=== PATIENT | male | born 1940 | race African-American/Black ===

== ENCOUNTER 2023-10-19 08:03 | Inpatient (IN) | payer OTHER, MEDICARE ==
[~2023-10-19] VITALS: Ht 182.9 cm; Wt 78.2 kg
[2023-10-19] MEDS ORDERED: ACETAMINOPHEN 325MG TABLET PO STA (08:14)
[2023-10-19] MEDS ORDERED: SODIUM CHLORIDE 0.9% 1,000 ML IV ONE ×2 (08:15→11:00)
[2023-10-19 09:00] LABS: HEMATOCRIT. 30.6 % (42.0-52.0); HEMOGLOBIN. 9.5 g/dL (14.0-18.0); MEAN CORPUSCULAR HGB CONC 31.1 g/dL (31.0-37.0); MEAN CORPUSCULAR VOLUME 89.8 fL (80.0-94.0); MEAN PLATELET VOLUME 7.4 fl (7.4-10.4); PLATELET 235 x1000/uL (130-400); RED BLOOD CELL COUNT 3.41 mill/uL (4.7-6.1); RED CELL DISTRIBUTION WIDTH 14.8 % (11.6-14.6); WHITE BLOOD COUNT 13.4 x1000/uL (4.5-11.0)
[2023-10-19 09:03] LABS: INR 1.2; PROTHROMBIN TIME 12.8 sec (9.6-11.0)
[2023-10-19 09:05] LABS: DIFFERENTIAL COMMENT 1
[2023-10-19 09:14] LABS: ALANINE AMINOTRANSFERASE 10 IU/L (10-49); ALBUMIN 3.3 g/dL (3.2-4.8); ASPARTATE AMINOTRANSFERASE 32 IU/L (<34); BILIRUBIN TOTAL 0.5 mg/dL (0.1-1.0); CALCIUM 8.7 mg/dL (8.7-10.4); CARBON DIOXIDE 21 mEq/L (21-32); CHLORIDE 96 mEq/L (98-107); CREATININE 2.5 mg/dL (0.6-1.3); GLUCOSE 131 mg/dL (70-105); PROTEIN TOTAL 7.6 g/dL (6.0-8.3); SODIUM 130 mEq/L (136-145); UREA NITROGEN BLOOD 33 mg/dL (9-23)
[2023-10-19 09:26] LABS: TROPONIN I HIGH SENSITIVITY 1831 ng/L (3.0-53)
[2023-10-19 09:27] LABS: LACTIC ACID 8.2 mmol/L (0.4-2.0)
[2023-10-19] MEDS ORDERED: VANCOMYCIN 1G PREMIX 200 ML IV STA (10:39)
[2023-10-19] MEDS ORDERED: CEFEPIME 1,000 MG in DEXTROSE 5% WATER 50 ML IV STA (10:39)
[2023-10-19] MEDS ORDERED: ASPIRIN 325MG TABLET PO ONE (10:45)
[2023-10-19 11:25] LABS: TROPONIN I HIGH SENSITIVITY 2841 ng/L (3.0-53)
[2023-10-19] MEDS ORDERED: CLONIDINE 0.1MG TABLET PO PRN (14:00)
[2023-10-19] MEDS ORDERED: ACETAMINOPHEN 325MG TABLET PO PRN ×2 (14:00)
[2023-10-19] MEDS ORDERED: DOCUSATE SODIUM 100MG CAPSULE PO PRN (14:00)
[2023-10-19] MEDS ORDERED: ONDANSETRON HCL 4MG/2ML INJ IV PRN (14:00)
[2023-10-19] MEDS ORDERED: IPRATROPIUM/ALBUTEROL 0.5-3(2.5)MG/3ML NEB HHN PRN (14:00)
[2023-10-19] MEDS ORDERED: GUAIFENESIN 200MG/10ML SUGAR FREE UDC PO PRN (14:00)
[2023-10-19] MEDS ORDERED: MAGNESIUM/ALUMINUM HYDROXIDE/SIMETHICONE 30ML UDC PO PRN (14:00)
[2023-10-19] MEDS: LACTATED RINGERS 1,000 ML IV SCH (14:30)
[2023-10-19 14:44] LABS: HYPOCHROMASIA 1+; PLATELET ESTIMATE NORMAL
[2023-10-19] MEDS ORDERED: NOREPINEPHRINE 8MG/250ML PMX 250 ML IV ONE (14:45)
[2023-10-19] MEDS ORDERED: PIPERACILLIN/TAZ 3.375G PREMIX 50 ML IV NR (15:30)
[2023-10-19 17:39] LABS: CLARITY URINE CLOUDY (CLEAR); COLOR URINE YELLOW (YELLOW)
[2023-10-19 17:40] LABS: GLUCOSE URINE NEGATIVE (NEGATIVE); KETONES URINE NEGATIVE (NEGATIVE); LEUKOCYTE ESTERASE URINE 2+ (NEGATIVE); NITRITE URINE NEGATIVE (NEGATIVE); OCCULT BLOOD URINE 3+ (NEGATIVE); PROTEIN URINE 1+ (NEGATIVE); UROBILINOGEN URINE 0.2 E.U./dL (0.2-1.0)
[2023-10-19 17:57] LABS: BACTERIA URINE 4+; SQUAMOUS EPITHELIAL CELL URINE FEW /lpf (RARE/1+)
[2023-10-19 17:58] LABS: RBC URINE 15-25 /hpf (0-2); WBC URINE 25-50 /hpf (0-2)
[2023-10-19 18:20] LABS: *AMPHETAMINES SCREEN URINE NEGATIVE (NEGATIVE); *BARBITURATES SCREEN URINE NEGATIVE (NEGATIVE); *BENZODIAZEPINES SCREEN URINE NEGATIVE (NEGATIVE); *COCAINE SCREEN URINE NEGATIVE (NEGATIVE); CANNABINOID URINE SCREEN NEGATIVE (NEGATIVE); ECSTASY MDMA SCREEN URINE NEGATIVE (NEGATIVE); METHADONE URINE SCREEN Neg (NEGATIVE); OPIATES URINE SCREEN NEGATIVE (NEGATIVE); PHENCYCLIDINE URINE SCREEN NEGATIVE (NEGATIVE); SODIUM URINE RANDOM 39 mEq/L
[2023-10-19 18:24] LABS: OSMOLALITY URINE 268 mOsm/kg (500-850)
[2023-10-19 19:18] LABS: ALANINE AMINOTRANSFERASE 13 IU/L (10-49); ASPARTATE AMINOTRANSFERASE 61 IU/L (<34); BILIRUBIN TOTAL 0.5 mg/dL (0.1-1.0); CALCIUM 7.8 mg/dL (8.7-10.4); CARBON DIOXIDE 21 mEq/L (21-32); CHLORIDE 100 mEq/L (98-107); CREATINE KINASE 1525 IU/L (46-171); CREATINE KINASE MB FRACTION 16.3 ng/mL (0.5-3.6); CREATININE 2.6 mg/dL (0.6-1.3); GLUCOSE 103 mg/dL (70-105); POTASSIUM 3.6 mEq/L (3.5-5.1); PROTEIN TOTAL 6.8 g/dL (6.0-8.3); SODIUM 132 mEq/L (136-145); UREA NITROGEN BLOOD 37 mg/dL (9-23)
[2023-10-19 19:46] LABS: TROPONIN I HIGH SENSITIVITY 3756 ng/L (3.0-53)
[2023-10-19] MEDS ORDERED: ENOXAPARIN 30MG/0.3ML SYR SUBCUT SCH (20:00)
[2023-10-19] MEDS ORDERED: PIPERACILLIN/TAZOBACTAM 3.375G in DEXT 5% WATER 50ML IV SCH (23:00)
[2023-10-20] VITALS (8 sets, daily range): BP systolic 98–125; BP diastolic 53–79; PULSE 89–97; RESP 16–32; TEMP 97–98.2
[2023-10-20 00:43] LABS: TROPONIN I HIGH SENSITIVITY 3724 ng/L (3.0-53)
[2023-10-20 05:10] LABS: HEMATOCRIT. 30.7 % (42.0-52.0); HEMOGLOBIN. 9.8 g/dL (14.0-18.0); MEAN CORPUSCULAR HEMOGLOBIN 28.6 pg (28.0-32.0); MEAN CORPUSCULAR HGB CONC 32.1 g/dL (31.0-37.0); MEAN CORPUSCULAR VOLUME 89.1 fL (80.0-94.0); MEAN PLATELET VOLUME 7.6 fl (7.4-10.4); PLATELET 147 x1000/uL (130-400); RED BLOOD CELL COUNT 3.44 mill/uL (4.7-6.1); RED CELL DISTRIBUTION WIDTH 15.4 % (11.6-14.6); WHITE BLOOD COUNT 27.5 x1000/uL (4.5-11.0)
[2023-10-20 05:19] LABS: DIFFERENTIAL COMMENT 1
[2023-10-20] MEDS: ATORVASTATIN CALCIUM 20MG TABLET PO SCH ×2 (05:30→21:03)
[2023-10-20 05:32] LABS: ALANINE AMINOTRANSFERASE 18 IU/L (10-49); ALBUMIN 3.2 g/dL (3.2-4.8); ASPARTATE AMINOTRANSFERASE 98 IU/L (<34); BILIRUBIN TOTAL 0.4 mg/dL (0.1-1.0); CALCIUM 8.1 mg/dL (8.7-10.4); CARBON DIOXIDE 22 mEq/L (21-32); CHLORIDE 100 mEq/L (98-107); CHOLESTEROL 87 mg/dL (<200); CREATININE 3.1 mg/dL (0.6-1.3); GLUCOSE 103 mg/dL (70-105); HDL CHOLESTEROL < 20 mg/dL (>55); LDL CHOLESTEROL 27 mg/dL (5-100); POTASSIUM 3.8 mEq/L (3.5-5.1); PROTEIN TOTAL 7.2 g/dL (6.0-8.3); SODIUM 131 mEq/L (136-145); T4 FREE 1.21 ng/dL (0.89-1.76); THYROID STIMULATING HORMONE 3.37 uIU/mL (0.55-4.78); TRIGLYCERIDE 105 mg/dL (0-150); UREA NITROGEN BLOOD 41 mg/dL (9-23)
[2023-10-20] MEDS: LACTATED RINGERS 1,000 ML IV SCH ×2 (05:37→17:10)
[2023-10-20 05:46] LABS: PLATELET ESTIMATE NORMAL
[2023-10-20 06:43] LABS: CREATINE KINASE MB FRACTION 26.2 ng/mL (0.5-3.6)
[2023-10-20 07:25] LABS: CREATINE KINASE MB FRACTION 24.7 ng/mL (0.5-3.6)
[2023-10-20] MEDS ORDERED: VANCOMYCIN 750MG PREMIX 150 ML IV SCH (08:00)
[2023-10-20] MEDS: ENOXAPARIN 40MG/0.4ML SYR SUBCUT NR ×2 (08:53→14:25)
[2023-10-20] MEDS ORDERED: FAMOTIDINE 20MG/2ML VIAL IV SCH (09:00)
[2023-10-20] MEDS ORDERED: PIPERACILLIN/TAZ 3.375G PREMIX 50 ML IV SCH (09:00)
[2023-10-20] MEDS: ASPIRIN 81MG EC TABLET PO SCH (09:18)
[2023-10-20] MEDS ORDERED: PHENYLEPHRINE 100 MG in DEXT 5% WATER 240 ML IV PRN (09:45)
[2023-10-20] MEDS ORDERED: CLOPIDOGREL 75MG TABLET PO SCH (09:45)
[2023-10-20 11:25] LABS: TROPONIN I HIGH SENSITIVITY 4897 ng/L (3.0-53)
[2023-10-20 12:38] LABS: CREATINE KINASE MB FRACTION 32.6 ng/mL (0.5-3.6)
[2023-10-20] MEDS: CLOPIDOGREL 75MG TABLET PO SCH (14:25)
[2023-10-20] MEDS ORDERED: LOPERAMIDE HCL 2MG CAPSULE PO NR (14:45)
[2023-10-20] MEDS: PIPERACILLIN/TAZOBACTAM 3.375 G in DEXTROSE 5% WATER 50 ML IV SCH ×2 (15:46→22:49)
[2023-10-20] MEDS ORDERED: LACTATED RINGERS 1,000 ML IV SCH (20:45)
[2023-10-20] MEDS ORDERED: PIPERACILLIN/TAZOBACTAM 3.375 G in DEXTROSE 5% WATER 50 ML IV SCH (21:00)
[2023-10-20 22:02] LABS: CREATINE KINASE MB FRACTION 25.4 ng/mL (0.5-3.6)
[2023-10-21] VITALS (9 sets, daily range): BP systolic 104–123; BP diastolic 49–81; PULSE 79–101; RESP 11–26; TEMP 97.1–98.2
[2023-10-21 02:04] LABS: HEMATOCRIT. 27.2 % (42.0-52.0); MEAN CORPUSCULAR HEMOGLOBIN 28.2 pg (28.0-32.0); MEAN CORPUSCULAR HGB CONC 33.3 g/dL (31.0-37.0); MEAN CORPUSCULAR VOLUME 84.9 fL (80.0-94.0); MEAN PLATELET VOLUME 7.9 fl (7.4-10.4); PLATELET 133 x1000/uL (130-400); WHITE BLOOD COUNT 21.7 x1000/uL (4.5-11.0)
[2023-10-21 02:09] LABS: DIFFERENTIAL COMMENT 1
[2023-10-21 02:16] LABS: CALCIUM 8.1 mg/dL (8.7-10.4); CARBON DIOXIDE 21 mEq/L (21-32); CHLORIDE 101 mEq/L (98-107); GLUCOSE 123 mg/dL (70-105); PHOSPHORUS 2.5 mg/dL (2.5-4.9); SODIUM 132 mEq/L (136-145); UREA NITROGEN BLOOD 33 mg/dL (9-23)
[2023-10-21 02:17] LABS: CREATINE KINASE MB FRACTION 14.8 ng/mL (0.5-3.6)
[2023-10-21 02:19] LABS: CREATININE 1.8 mg/dL (0.6-1.3)
[2023-10-21 05:15] LABS: PLATELET ESTIMATE NORMAL
[2023-10-21] MEDS ORDERED: POTASSIUM CHLORIDE INJ 40 MEQ in DEXT 5% WATER 250 ML IV ONE (06:00)
[2023-10-21] MEDS ORDERED: POTASSIUM CHLORIDE 20MEQ TABLET SR PO NR (06:00)
[2023-10-21] MEDS: KCL 20MEQ/100ML X 2 FOR TOTAL KCL 40MEQ/200ML IV SCH ×2 (06:08→08:26)
[2023-10-21] MEDS ORDERED: KCL 20MEQ/100ML PREMIX 100 ML IV SCH (07:15)
[2023-10-21] MEDS ORDERED: LACTATED RINGERS 1,000 ML IV SCH (07:45)
[2023-10-21] MEDS: PIPERACILLIN/TAZOBACTAM 3.375 G in DEXTROSE 5% WATER 50 ML IV SCH ×3 (08:26→21:13)
[2023-10-21] MEDS: CLOPIDOGREL 75MG TABLET PO SCH (08:28)
[2023-10-21] MEDS: ASPIRIN 81MG EC TABLET PO SCH (08:28)
[2023-10-21] MEDS ORDERED: ENOXAPARIN 80MG/0.8ML SYR SUBCUT SCH (09:00)
[2023-10-21 11:38] LABS: CREATINE KINASE MB FRACTION 16.3 ng/mL (0.5-3.6)
[2023-10-21 16:42] LABS: CREATINE KINASE MB FRACTION 8.2 ng/mL (0.5-3.6)
[2023-10-21] MEDS: ATORVASTATIN CALCIUM 20MG TABLET PO SCH (19:58)
[2023-10-21 21:12] LABS: CALCIUM 8.2 mg/dL (8.7-10.4); CARBON DIOXIDE 20 mEq/L (21-32); CHLORIDE 104 mEq/L (98-107); CREATININE 1.3 mg/dL (0.6-1.3); GLUCOSE 131 mg/dL (70-105); POTASSIUM 3.5 mEq/L (3.5-5.1); SODIUM 135 mEq/L (136-145); UREA NITROGEN BLOOD 27 mg/dL (9-23)
[2023-10-22] VITALS: BP 119/52; PULSE 95; RESP 18; TEMP 97.3
[2023-10-22 00:11] VITALS: BP 129/63; PULSE 93; TEMP 98; O2SAT 92
[2023-10-22] MEDS ORDERED: ENOXAPARIN 80MG/0.8ML SYR SUBCUT SCH (09:00)
== END 2023-10-22 01:15 | disposition short-term general hospital (02) | DRG 871 ==
LOC: ER 08:03 → EDBEDREQTM 13:14 → EDBEDREQ 13:14 → EDBEDREQSVC 16:30 → EDBEDREQTM 16:31 → EDBEDREQSVC 16:31 → MICUSO 19:07 → 5EST 10-20 09:28 → 5WST 10-21 10:55
PROVIDERS: ADMIT Hospitalist; ATTEND Hospitalist
DX: A41.9 Sepsis, unspecified organism (principal); G92.8 Other toxic encephalopathy; I21.A1 Myocardial infarction type 2; R65.21 Severe sepsis with septic shock; E87.1 Hypo-osmolality and hyponatremia; N17.9 Acute kidney failure, unspecified; N39.0 Urinary tract infection, site not specified; M62.82 Rhabdomyolysis; N12 Tubulo-interstitial nephritis, not specified as acute or chronic; E87.20 Acidosis, unspecified; Z20.822 Contact with and (suspected) exposure to COVID-19; I12.9 Hypertensive chronic kidney disease with stage 1 through stage 4 chronic kidney disease, or unspecified chronic kidney disease; N18.9 Chronic kidney disease, unspecified; E86.0 Dehydration; K52.9 Noninfective gastroenteritis and colitis, unspecified; D64.9 Anemia, unspecified; E87.6 Hypokalemia; N32.0 Bladder-neck obstruction; Z79.02 Long term (current) use of antithrombotics/antiplatelets; Z79.82 Long term (current) use of aspirin; Z79.899 Other long term (current) drug therapy
CPT/HCPCS: 36415; 71045; 74176; 80048; 80053; 80061; 80305; 81003; 82550; 82553; 82962; 83605; 83735; 83880; 83930; 83935; 84100; 84145; 84153; 84300; 84439; 84443; 84484; 85025; 86850; 86900; 87077; 87186; 87426; 87804; 93005; 93306; 93970; 99291; J0692; J1650; J2543; J3370; J3480; J3490; J7030; J7060; J7120; G0103

== ENCOUNTER 2023-12-31 15:11 | Emergency (ER) | payer MEDICARE, OTHER ==
[~2023-12-31] VITALS: Ht 182.9 cm; Wt 78.0 kg
[2023-12-31 15:13] VITALS: O2SAT 97
[2023-12-31] MEDS ORDERED: NITROGLYCERIN 0.4MG TABLET SL SL PRN (15:15)
[2023-12-31] MEDS: ASPIRIN 81MG TABLET PO ONE (16:03)
[2023-12-31 16:08] LABS: BASOPHILS % 0.3 % (0.0-2.0); EOSINOPHILS % 0.4 % (0.0-5.0); HEMATOCRIT. 23.7 % (42.0-52.0); HEMOGLOBIN. 7.9 g/dL (14.0-18.0); LYMPHOCYTES % 8.3 % (20.0-50.0); MEAN CORPUSCULAR HEMOGLOBIN 29.4 pg (28.0-32.0); MEAN CORPUSCULAR HGB CONC 33.2 g/dL (31.0-37.0); MEAN CORPUSCULAR VOLUME 88.6 fL (80.0-94.0); MEAN PLATELET VOLUME 7.1 fl (7.4-10.4); MONOCYTES % 10.4 % (2.0-8.0); NEUTROPHILS % 80.6 % (40.0-76.0); PLATELET 275 x1000/uL (130-400); RED BLOOD CELL COUNT 2.67 mill/uL (4.7-6.1); RED CELL DISTRIBUTION WIDTH 17.1 % (11.6-14.6); WHITE BLOOD COUNT 8.6 x1000/uL (4.5-11.0)
[2023-12-31 16:21] LABS: ALANINE AMINOTRANSFERASE 12 IU/L (10-49); ALBUMIN 3.2 g/dL (3.2-4.8); ASPARTATE AMINOTRANSFERASE 25 IU/L (<34); BILIRUBIN TOTAL 0.4 mg/dL (0.1-1.0); CARBON DIOXIDE 21 mEq/L (21-32); CHLORIDE 105 mEq/L (98-107); CREATININE 0.9 mg/dL (0.6-1.3); GLUCOSE 117 mg/dL (70-105); POTASSIUM 3.4 mEq/L (3.5-5.1); PROTEIN TOTAL 7.2 g/dL (6.0-8.3); SODIUM 134 mEq/L (136-145); UREA NITROGEN BLOOD 14 mg/dL (9-23)
[2023-12-31 16:26] LABS: TROPONIN I HIGH SENSITIVITY 545 ng/L (3.0-53)
[2023-12-31] MEDS: FUROSEMIDE 40MG/4ML VIAL IVP ONE (17:26)
[2023-12-31] MEDS: ENOXAPARIN 80MG/0.8ML SYR SUBCUT ONE (17:27)
[2023-12-31] MEDS: CEFTRIAXONE 1GM/50ML 50 ML IV ONE (17:43)
[2023-12-31] MEDS: AZITHROMYCIN 500MG/250ML 250 ML IV ONE (18:00)
[2023-12-31] MEDS: ALBUTEROL (0.083%) 2.5MG/3ML NEB HHN ONE (18:07)
[2023-12-31 18:10] VITALS: PULSE 120; RESP 29
[2023-12-31 19:44] LABS: TROPONIN I HIGH SENSITIVITY 515 ng/L (3.0-53)
[2023-12-31 22:16] VITALS: BP 116/51; PULSE 115; RESP 31; TEMP 98
== END 2023-12-31 22:14 | disposition short-term general hospital (02) ==
LOC: ER 15:11
DX: R06.02 Shortness of breath (principal); I10 Essential (primary) hypertension; Z98.890 Other specified postprocedural states
CPT/HCPCS: 99291; 96365; 71045; 96366; 96375; 87426; 80053; 83880; 85025; 84484; 36415; 94640; 93005; 96372; J0456; J0696; J1650; J1940

== ENCOUNTER 2024-03-14 07:35 | Emergency (ER) | payer OTHER ==
[~2024-03-14] VITALS: Ht 165.1 cm; Wt 71.0 kg
[2024-03-14 07:43] VITALS: TEMP 97.3; O2SAT 97
[2024-03-14] MEDS: IBUPROFEN 400MG TABLET PO ONE (09:15)
[2024-03-14] MEDS: ACETAMINOPHEN 325MG TABLET PO ONE (09:15)
[2024-03-14 09:25] VITALS: BP 139/54; PULSE 88; RESP 17
[2024-03-14] MEDS ORDERED: CEPH500C2 MT (12:15)
[2024-03-14] MEDS ORDERED: SULF1TAB48 MT (12:15)
== END 2024-03-14 13:35 | disposition home or self-care (01) ==
LOC: ER 07:35
DX: L97.529 Non-pressure chronic ulcer of other part of left foot with unspecified severity (principal); L97.519 Non-pressure chronic ulcer of other part of right foot with unspecified severity; I25.2 Old myocardial infarction; I10 Essential (primary) hypertension; Z85.46 Personal history of malignant neoplasm of prostate; Z98.890 Other specified postprocedural states
CPT/HCPCS: 73620; 99283

== ENCOUNTER 2024-03-26 20:58 | Inpatient (IN) | payer OTHER, MEDICAID ==
[~2024-03-26] VITALS: Ht 182.9 cm; Wt 60.3 kg
[~2024-03-26 20:58] MED LIST: CEPH500C2 MT; SULF1TAB48 MT
[2024-03-26 23:23] LABS: CARBON DIOXIDE 30 mEq/L (21-32); CHLORIDE 100 mEq/L (98-107); POTASSIUM 4.1 mEq/L (3.5-5.1); SODIUM 135 mEq/L (136-145)
[2024-03-26 23:24] LABS: CALCIUM 8.3 mg/dL (8.7-10.4)
[2024-03-26 23:25] LABS: INR 1.2; PARTIAL THROMBOPLASTIN TIME 27.9 sec (23.4-31.0)
[2024-03-26 23:27] LABS: BASOPHILS % 0.6 % (0.0-2.0); HEMATOCRIT. 21.3 % (42.0-52.0); HEMOGLOBIN. 7.4 g/dL (14.0-18.0); LYMPHOCYTES % 7.5 % (20.0-50.0); MEAN CORPUSCULAR HEMOGLOBIN 33.1 pg (28.0-32.0); MEAN CORPUSCULAR HGB CONC 34.5 g/dL (31.0-37.0); MEAN CORPUSCULAR VOLUME 95.9 fL (80.0-94.0); MEAN PLATELET VOLUME 7.1 fl (7.4-10.4); MONOCYTES % 5.8 % (2.0-8.0); NEUTROPHILS % 86.1 % (40.0-76.0); PLATELET 299 x1000/uL (130-400); RED BLOOD CELL COUNT 2.22 mill/uL (4.7-6.1); RED CELL DISTRIBUTION WIDTH 16.1 % (11.6-14.6)
[2024-03-26 23:29] LABS: CREATININE 1.3 mg/dL (0.6-1.3); GLUCOSE 112 mg/dL (70-105); TROPONIN I HIGH SENSITIVITY 26 ng/L (3.0-53); UREA NITROGEN BLOOD 19 mg/dL (9-23)
[2024-03-26 23:30] LABS: ALANINE AMINOTRANSFERASE 17 IU/L (10-49); ASPARTATE AMINOTRANSFERASE 58 IU/L (<34)
[2024-03-26 23:31] LABS: ALBUMIN 2.9 g/dL (3.2-4.8); BILIRUBIN TOTAL 0.5 mg/dL (0.1-1.0); PROTEIN TOTAL 6.5 g/dL (6.0-8.3)
[2024-03-27] VITALS (43 sets, daily range): BP systolic 73–159; BP diastolic 34–143; PULSE 93–114; RESP 14–29; TEMP 97.9–98
[2024-03-27 00:20] LABS: CLARITY URINE TURBID (CLEAR); COLOR URINE YELLOW (YELLOW); GLUCOSE URINE NEGATIVE (NEGATIVE); KETONES URINE NEGATIVE (NEGATIVE); LEUKOCYTE ESTERASE URINE 3+ (NEGATIVE); NITRITE URINE NEGATIVE (NEGATIVE); OCCULT BLOOD URINE TRACE (NEGATIVE); PROTEIN URINE NEGATIVE (NEGATIVE); SPECIFIC GRAVITY URINE 1.008 (1.005-1.030)
[2024-03-27] MEDS: FUROSEMIDE 40MG/4ML VIAL IVP ONE (00:22)
[2024-03-27] MEDS: ASPIRIN 81MG TABLET PO ONE (00:23)
[2024-03-27] MEDS ORDERED: CEFTRIAXONE 1GM/50ML 50 ML IV ONE (00:45)
[2024-03-27] MEDS: HEPARIN 25,000 UNITS PREMIX 250 ML IV STA (00:50)
[2024-03-27] MEDS: CEFTRIAXONE 1GM/50ML 50 ML IV NR (00:53)
[2024-03-27] MEDS ORDERED: HEPARIN BOLUS PRN aPTT <36 IV ×2 (01:15)
[2024-03-27] MEDS ORDERED: HEPARIN 80 UNITS/KG BOLUS IV SCH (01:15)
[2024-03-27] MEDS ORDERED: HEPARIN BOLUS PRN aPTT 37-44 IV ×2 (01:15)
[2024-03-27] MEDS: HEPARIN 80 UNITS/KG BOLUS IV NR (01:23)
[2024-03-27] MEDS: HEPARIN 25,000 UNITS PREMIX 250 ML IV SCH (01:25)
[2024-03-27 06:12] LABS: SQUAMOUS EPITHELIAL CELL URINE FEW /lpf (RARE/1+); WBC URINE TNTC /hpf (0-2)
[2024-03-27 06:13] LABS: BACTERIA URINE 3+
[2024-03-27] MEDS ORDERED: ACETAMINOPHEN 650MG/20.3ML UDC PO PRN (06:30)
[2024-03-27] MEDS: METOPROLOL TARTRATE 50MG TABLET PO SCH (09:00)
[2024-03-27] MEDS: MIDODRINE HCL 5MG TABLET PO SCH (09:06)
[2024-03-27] MEDS: SODIUM CHLORIDE 0.9% 500 ML IV ONE (09:07)
[2024-03-27] MEDS: IOHEXOL-350 100 ML BOTTLE ONE (09:11)
[2024-03-27] MEDS ORDERED: PHENYLEPHRINE 50MG/250ML PMX 250 ML IV PRN (10:45)
[2024-03-27] MEDS ORDERED: ONDANSETRON HCL 4MG/2ML INJ IV PRN (10:45)
[2024-03-27] MEDS: PHENYLEPHRINE 50MG/250ML PMX 250 ML IV PRN (11:10)
[2024-03-27 11:22] LABS: IRON 20 ug/dL (65-175)
[2024-03-27 11:25] LABS: TOTAL IRON BINDING CAPACITY 171 ug/dl (250-425)
[2024-03-27] MEDS: PIPERACILLIN/TAZO 3.375G/50ML 50 ML IV SCH (14:58)
[2024-03-27] MEDS: SODIUM CHLORIDE 0.9% 1,000 ML IV SCH (18:21)
[2024-03-27] MEDS: PANTOPRAZOLE SODIUM 40 MG/VIAL IV SCH (20:29)
[2024-03-28] VITALS (78 sets, daily range): BP systolic 87–132; BP diastolic 39–80; PULSE 87–104; RESP 14–37; TEMP 98–99; O2SAT 97
[2024-03-28 05:33] LABS: POTASSIUM 3.2 mEq/L (3.5-5.1)
[2024-03-28 05:34] LABS: CALCIUM 7.3 mg/dL (8.7-10.4)
[2024-03-28 05:39] LABS: CREATININE 1.5 mg/dL (0.6-1.3)
[2024-03-28 06:46] LABS: MEAN CORPUSCULAR HEMOGLOBIN 31.5 pg (28.0-32.0); MEAN CORPUSCULAR HGB CONC 33.9 g/dL (31.0-37.0); MEAN CORPUSCULAR VOLUME 93.1 fL (80.0-94.0); MEAN PLATELET VOLUME 7.7 fl (7.4-10.4); PLATELET 226 x1000/uL (130-400); RED BLOOD CELL COUNT 2.25 mill/uL (4.7-6.1); RED CELL DISTRIBUTION WIDTH 17.1 % (11.6-14.6)
[2024-03-28 06:47] LABS: DIFFERENTIAL COMMENT 1
[2024-03-28 07:01] LABS: HEMOGLOBIN. 7.1 g/dL (14.0-18.0)
[2024-03-28 07:02] LABS: HEMATOCRIT. 20.9 % (42.0-52.0)
[2024-03-28] MEDS ORDERED: LIDOCAINE HCL 1% 10 MG/ML 10ML VIAL ONE ×2 (08:06→14:18)
[2024-03-28] MEDS: DEXTROSE 50% WATER 50ML SYRINGE IV ONE (08:07)
[2024-03-28] MEDS: DEXT 5%/0.45% NACL 1000ML 1,000 ML IV SCH (08:10)
[2024-03-28] MEDS: DEXTROSE 50% WATER 50ML SYRINGE IV NR (09:09)
[2024-03-28 09:16] LABS: TOXIC VACUOLATION 1+
[2024-03-28 09:17] LABS: PLATELET ESTIMATE NORMAL
[2024-03-28] MEDS: POTASSIUM CHLORIDE 20MEQ TABLET SR PO NR (09:17)
[2024-03-28 09:18] LABS: ANISOCYTOSIS 2+
[2024-03-28 14:48] LABS: ALBUMIN 2.5 g/dL (3.2-4.8)
[2024-03-28 15:14] LABS: PREALBUMIN < 5.0 mg/dl (10.0-40.0)
[2024-03-28] MEDS: VANCOMYCIN 250MG/5ML ORAL SYRINGE PO SCH (15:27)
[2024-03-29] MEDS ORDERED: MIDODRINE HCL 5MG TABLET PO SCH (09:00)
== END 2024-03-29 | disposition short-term general hospital (02) | DRG 871 ==
LOC: ER 20:58 → CVICU 03-27 01:56 → EDBEDREQ 03-27 09:46 → EDBEDREQSVC 03-27 10:43
PROVIDERS: ADMIT Internal Medicine; ATTEND Internal Medicine
DX: A41.9 Sepsis, unspecified organism (principal); L89.153 Pressure ulcer of sacral region, stage 3; L89.623 Pressure ulcer of left heel, stage 3; L89.613 Pressure ulcer of right heel, stage 3; R65.21 Severe sepsis with septic shock; E44.0 Moderate protein-calorie malnutrition; N17.9 Acute kidney failure, unspecified; K92.2 Gastrointestinal hemorrhage, unspecified; Z68.1 Body mass index [BMI] 19.9 or less, adult; A04.72 Enterocolitis due to Clostridium difficile, not specified as recurrent; D50.0 Iron deficiency anemia secondary to blood loss (chronic); B96.20 Unspecified Escherichia coli [E. coli] as the cause of diseases classified elsewhere; C61 Malignant neoplasm of prostate; I48.91 Unspecified atrial fibrillation; I11.0 Hypertensive heart disease with heart failure; I50.9 Heart failure, unspecified; B96.89 Other specified bacterial agents as the cause of diseases classified elsewhere; E16.2 Hypoglycemia, unspecified; Z85.46 Personal history of malignant neoplasm of prostate; Z87.440 Personal history of urinary (tract) infections
CPT/HCPCS: 36415; 36573; 71045; 71275; 80048; 80053; 81003; 82040; 82728; 82962; 83540; 83550; 83880; 84134; 84484; 85025; 86850; 86900; 86920; 87015; 87045; 87077; 87186; 87427; 87449; 87493; 93005; 93970; 99285; C1893; C9113; J0696; J1644; J1940; J2370; J2543; J3370; J3490; J7030; Q9967

== ENCOUNTER 2024-04-08 16:44 | Inpatient (IN) | payer OTHER, MEDICAID ==
[~2024-04-08] VITALS: Ht 182.9 cm; Wt 80.7 kg
[2024-04-08] MEDS: SODIUM CHLORIDE 0.9% 1000ML BAG (SEPSIS BOLUS) IV ONE (17:36)
[2024-04-08] MEDS: PIPERACILLIN/TAZO 3.375G/50ML 50 ML IV ONE (17:49)
[2024-04-08 18:06] LABS: BASOPHILS % 0.7 % (0.0-2.0); EOSINOPHILS % 0.3 % (0.0-5.0); HEMATOCRIT. 21.5 % (42.0-52.0); HEMOGLOBIN. 7.2 g/dL (14.0-18.0); LYMPHOCYTES % 19.5 % (20.0-50.0); MEAN CORPUSCULAR HGB CONC 33.3 g/dL (31.0-37.0); MEAN PLATELET VOLUME 7.2 fl (7.4-10.4); MONOCYTES % 6.9 % (2.0-8.0); NEUTROPHILS % 72.6 % (40.0-76.0); PLATELET 229 x1000/uL (130-400); RED BLOOD CELL COUNT 2.31 mill/uL (4.7-6.1); RED CELL DISTRIBUTION WIDTH 15.8 % (11.6-14.6); WHITE BLOOD COUNT 8.6 x1000/uL (4.5-11.0)
[2024-04-08] MEDS: VANCOMYCIN 1G PREMIX 200 ML IV ONE (18:06)
[2024-04-08 18:07] LABS: CHLORIDE 105 mEq/L (98-107); POTASSIUM 3.6 mEq/L (3.5-5.1); SODIUM 136 mEq/L (136-145)
[2024-04-08 18:08] LABS: CARBON DIOXIDE 22 mEq/L (21-32); INR 1.5; PROTHROMBIN TIME 16.2 sec (9.6-11.0)
[2024-04-08 18:09] LABS: CALCIUM 7.1 mg/dL (8.7-10.4)
[2024-04-08 18:13] LABS: CREATININE 0.8 mg/dL (0.6-1.3); GLUCOSE 79 mg/dL (70-105); UREA NITROGEN BLOOD 6 mg/dL (9-23)
[2024-04-08 18:14] LABS: TROPONIN I HIGH SENSITIVITY 28 ng/L (3.0-53)
[2024-04-08 18:28] LABS: CLARITY URINE CLOUDY (CLEAR); COLOR URINE YELLOW (YELLOW); GLUCOSE URINE NEGATIVE (NEGATIVE); KETONES URINE NEGATIVE (NEGATIVE); LEUKOCYTE ESTERASE URINE 3+ (NEGATIVE); NITRITE URINE NEGATIVE (NEGATIVE); OCCULT BLOOD URINE NEGATIVE (NEGATIVE); PH URINE 5.5 (4.5-8.0); PROTEIN URINE NEGATIVE (NEGATIVE); UROBILINOGEN URINE 0.2 E.U./dL (0.2-1.0)
[2024-04-08 18:42] LABS: SQUAMOUS EPITHELIAL CELL URINE 1+ /lpf (RARE/1+)
[2024-04-08 18:43] LABS: WBC URINE TNTC /hpf (0-2)
[2024-04-08 18:44] LABS: BACTERIA URINE 4+; RBC URINE 0-2 /hpf (0-2)
[2024-04-08 20:35] LABS: TROPONIN I HIGH SENSITIVITY 25 ng/L (3.0-53)
[2024-04-09] MEDS ORDERED: DIPHENHYDRAMINE 50MG/ML VIAL IV PRN (09:45)
[2024-04-09] MEDS ORDERED: IPRATROPIUM/ALBUTEROL 0.5-3(2.5)MG/3ML NEB HHN PRN (09:45)
[2024-04-09] MEDS ORDERED: CLONIDINE 0.1MG TABLET PO PRN (09:45)
[2024-04-09] MEDS ORDERED: ACETAMINOPHEN 325MG TABLET PO PRN (09:45)
[2024-04-09] MEDS ORDERED: ONDANSETRON HCL 4MG/2ML INJ IV PRN (09:45)
[2024-04-09] MEDS ORDERED: CEFTRIAXONE 1GM/50ML 50 ML IV SCH (09:45)
[2024-04-09] MEDS: CEFTRIAXONE 1GM/50ML 50 ML IV SCH (10:20)
[2024-04-09 18:55] VITALS: BP 129/57; PULSE 120; RESP 18; TEMP 98.2
[2024-04-09] MEDS: LACTOBACILLUS GG CAPSULE PO SCH (19:41)
[2024-04-10] VITALS (7 sets, daily range): BP systolic 104–132; BP diastolic 44–74; PULSE 63–108; RESP 17–18; TEMP 97.7–98.9; O2SAT 96
[2024-04-10 07:08] LABS: CARBON DIOXIDE 23 mEq/L (21-32); CHLORIDE 103 mEq/L (98-107); POTASSIUM 3.5 mEq/L (3.5-5.1); SODIUM 136 mEq/L (136-145)
[2024-04-10 07:09] LABS: CALCIUM 7.6 mg/dL (8.7-10.4)
[2024-04-10 07:10] LABS: BASOPHILS % 0.9 % (0.0-2.0); EOSINOPHILS % 0.8 % (0.0-5.0); HEMATOCRIT. 21.6 % (42.0-52.0); HEMOGLOBIN. 7.1 g/dL (14.0-18.0); LYMPHOCYTES % 12.7 % (20.0-50.0); MEAN CORPUSCULAR HEMOGLOBIN 30.6 pg (28.0-32.0); MEAN CORPUSCULAR HGB CONC 32.8 g/dL (31.0-37.0); MEAN CORPUSCULAR VOLUME 93.5 fL (80.0-94.0); MEAN PLATELET VOLUME 7.2 fl (7.4-10.4); MONOCYTES % 5.2 % (2.0-8.0); NEUTROPHILS % 80.4 % (40.0-76.0); PLATELET 216 x1000/uL (130-400); RED BLOOD CELL COUNT 2.31 mill/uL (4.7-6.1); RED CELL DISTRIBUTION WIDTH 15.9 % (11.6-14.6); WHITE BLOOD COUNT 9.2 x1000/uL (4.5-11.0)
[2024-04-10 07:14] LABS: CREATININE 0.8 mg/dL (0.6-1.3); GLUCOSE 72 mg/dL (70-105); UREA NITROGEN BLOOD 7 mg/dL (9-23)
[2024-04-10 18:04] LABS: ALBUMIN 1.9 g/dL (3.2-4.8)
[2024-04-10 18:08] LABS: PREALBUMIN < 5.0 mg/dl (10.0-40.0)
== END 2024-04-10 20:42 | disposition short-term general hospital (02) | DRG 871 ==
LOC: ER 16:44 → 5WST 23:55 → 7WST 04-09 16:15
PROVIDERS: ADMIT Internal Medicine; ATTEND Internal Medicine
DX: A41.9 Sepsis, unspecified organism (principal); L89.153 Pressure ulcer of sacral region, stage 3; N39.0 Urinary tract infection, site not specified; I82.412 Acute embolism and thrombosis of left femoral vein; I82.431 Acute embolism and thrombosis of right popliteal vein; I82.411 Acute embolism and thrombosis of right femoral vein; R64 Cachexia; D64.9 Anemia, unspecified; I10 Essential (primary) hypertension; I48.91 Unspecified atrial fibrillation; B96.89 Other specified bacterial agents as the cause of diseases classified elsewhere; Z20.822 Contact with and (suspected) exposure to COVID-19; C61 Malignant neoplasm of prostate; Z68.24 Body mass index [BMI] 24.0-24.9, adult
CPT/HCPCS: 36415; 71045; 80048; 81003; 82040; 83605; 84134; 84145; 84484; 85025; 87077; 87186; 87426; 93005; 93970; 99291; A6261; J0696; J2543; J3370; J7030

== ENCOUNTER 2024-04-14 15:02 | Inpatient (IN) | payer OTHER, MEDICAID ==
[2024-04-14] VITALS (25 sets, daily range): BP systolic 72–118; BP diastolic 50–74; PULSE 60–101; RESP 16–31; TEMP 95.3–95.4; O2SAT 92
[~2024-04-14] VITALS: Ht 172.7 cm; Wt 64.9 kg
[2024-04-14] MEDS: DEXTROSE 10% WATER 500 ML IV ONE (15:07)
[2024-04-14] MEDS: DEXTROSE 50% WATER 50ML SYRINGE IV ONE ×2 (15:14→15:30)
[2024-04-14] MEDS ORDERED: PIPERACILLIN/TAZO 3.375G/50ML 50 ML IV ONE (15:15)
[2024-04-14] MEDS: HYDROCORTISONE SOD SUCCINATE 100 MG/2 ML VIAL IV ONE (15:15)
[2024-04-14] MEDS: VANCOMYCIN 1G PREMIX 200 ML IV ONE (15:15)
[2024-04-14] MEDS: SODIUM CHLORIDE 0.9% 1000ML BAG (SEPSIS BOLUS) IV ONE (15:26)
[2024-04-14] MEDS ORDERED: PHENYLEPHRINE 50 MG in DEXT 5% WATER 245 ML IV STA (15:26)
[2024-04-14] MEDS ORDERED: EPINEPHRINE 5 MG in SODIUM CHLORIDE 0.9% 245 ML IV STA (15:26)
[2024-04-14 15:47] LABS: BG CARBOXYHEMOGLOBIN 0.4 % (0.5-1.5); BG DEOXYHEMOGLOBIN 1.1 % (0.0-5.0); BG FRACTION INSPIRED OXYGEN 100; BG HCO3 ACT 12.2 mmol/L (22.0-26.0); BG METHEMOGLOBIN 2.1 % (0.0-1.5); BG OXYGEN SATURATION 98.9 % (92.0-98.5); BG OXYHEMOGLOBIN 96.4 % (94.0-97.0); BG PCO2 73.9 mmHg (35.0-45.0); BG PH 6.836 (7.350-7.450); BG PO2 226.7 mmHg (75.0-100.0); BG SAMPLE SITE RIGHT BRACHIAL; BG TOTAL HEMOGLOBIN 6.1 g/dL (12.0-18.0); BG TOTAL RESPIRATORY RATE 16 b/min; BG VENT MODE VENT - AC
[2024-04-14] MEDS: EPINEPHRINE 5 MG in SODIUM CHLORIDE 0.9% 245 ML IV ONE (15:54)
[2024-04-14] MEDS: PHENYLEPHRINE 50MG/250ML PMX 250 ML IV PRN (15:55)
[2024-04-14 15:57] LABS: LACTIC ACID 3.3 mmol/L (0.4-2.0)
[2024-04-14] MEDS: NOREPINEPHRINE 8MG/250ML PMX 250 ML IV ONE ×2 (15:59→17:15)
[2024-04-14 16:23] LABS: MEAN CORPUSCULAR HEMOGLOBIN 31.7 pg (28.0-32.0); MEAN CORPUSCULAR HGB CONC 31.8 g/dL (31.0-37.0); MEAN CORPUSCULAR VOLUME 99.7 fL (80.0-94.0); MEAN PLATELET VOLUME 7.9 fl (7.4-10.4); PLATELET 60 x1000/uL (130-400); RED BLOOD CELL COUNT 1.94 mill/uL (4.7-6.1); RED CELL DISTRIBUTION WIDTH 16.9 % (11.6-14.6); WHITE BLOOD COUNT 6.9 x1000/uL (4.5-11.0)
[2024-04-14 16:26] LABS: DIFFERENTIAL COMMENT 1
[2024-04-14 16:31] LABS: HEMATOCRIT. 19.3 % (42.0-52.0); HEMOGLOBIN. 6.1 g/dL (14.0-18.0); INR 2.4; PROTHROMBIN TIME 25.4 sec (9.6-11.0)
[2024-04-14] MEDS: EPINEPHRINE 10 MG in SODIUM CHLORIDE 0.9% 240 ML IV STA (17:05)
[2024-04-14 18:14] LABS: ANISOCYTOSIS 1+; PLATELET ESTIMATE DECREASED
[2024-04-14 18:15] LABS: HYPOCHROMASIA 1+
[2024-04-14] MEDS: PIPERACILLIN/TAZO 3.375G/50ML 50 ML IV NR (18:15)
[2024-04-14 18:53] LABS: CHLORIDE 113 mEq/L (98-107); POTASSIUM 4.5 mEq/L (3.5-5.1); SODIUM 140 mEq/L (136-145)
[2024-04-14 18:54] LABS: CALCIUM 7.5 mg/dL (8.7-10.4); CARBON DIOXIDE 15 mEq/L (21-32)
[2024-04-14 18:59] LABS: CREATININE 1.2 mg/dL (0.6-1.3); GLUCOSE 178 mg/dL (70-105); UREA NITROGEN BLOOD 16 mg/dL (9-23)
[2024-04-14 19:00] LABS: TROPONIN I HIGH SENSITIVITY 33 ng/L (3.0-53)
[2024-04-14 19:01] LABS: ALANINE AMINOTRANSFERASE 482 IU/L (10-49); ALBUMIN < 1.0 g/dL (3.2-4.8); ASPARTATE AMINOTRANSFERASE > 1000 IU/L (<34); BILIRUBIN DIRECT 0.4 mg/dL (<=3.0); BILIRUBIN TOTAL 0.5 mg/dL (0.1-1.0); CREATINE KINASE 446 IU/L (46-171); ETHANOL BLOOD < 10 mg/dL (<10)
[2024-04-14 19:03] LABS: PROTEIN TOTAL 2.9 g/dL (6.0-8.3)
[2024-04-14] MEDS: EPINEPHRINE 5 MG in SODIUM CHLORIDE 0.9% 245 ML IV PRN (19:11)
[2024-04-14] MEDS ORDERED: IPRATROPIUM/ALBUTEROL 0.5-3(2.5)MG/3ML NEB HHN PRN (19:30)
[2024-04-14] MEDS ORDERED: GUAIFENESIN 200MG/10ML SUGAR FREE UDC PO PRN (19:30)
[2024-04-14] MEDS ORDERED: DIPHENHYDRAMINE 50MG/ML VIAL IV PRN (19:30)
[2024-04-14] MEDS ORDERED: CLONIDINE 0.1MG TABLET PO PRN (19:30)
[2024-04-14] MEDS ORDERED: ACETAMINOPHEN 650MG/20.3ML UDC GT PRN ×2 (19:30)
[2024-04-14] MEDS ORDERED: LORAZEPAM 2MG/ML INJ IV PRN (19:30)
[2024-04-14] MEDS ORDERED: MAGNESIUM/ALUMINUM HYDROXIDE/SIMETHICONE 30ML UDC PO PRN (19:30)
[2024-04-14] MEDS ORDERED: ONDANSETRON HCL 4MG/2ML INJ IV PRN (19:30)
[2024-04-14 20:01] LABS: LDL CHOLESTEROL 11 mg/dL (5-100); TRIGLYCERIDE 68 mg/dL (0-150)
[2024-04-14 20:02] LABS: HDL CHOLESTEROL < 20 mg/dL (>55)
[2024-04-14 20:03] LABS: PHOSPHORUS 6.6 mg/dL (2.5-4.9)
[2024-04-14 20:05] LABS: T4 FREE 0.78 ng/dL (0.89-1.76); THYROID STIMULATING HORMONE 15.69 uIU/mL (0.55-4.78)
[2024-04-14] MEDS: NOREPINEPHRINE 8MG/250ML PMX 250 ML IV PRN (20:05)
[2024-04-14 20:11] LABS: CHOLESTEROL 29 mg/dL (<200)
[2024-04-14 20:13] LABS: BG BASE EXCESS -24.8 mmol/L (-2.0-2.0); BG CARBOXYHEMOGLOBIN 0.3 % (0.5-1.5); BG DEOXYHEMOGLOBIN 2.2 % (0.0-5.0); BG FRACTION INSPIRED OXYGEN 60; BG HCO3 ACT 5.3 mmol/L (22.0-26.0); BG METHEMOGLOBIN 2.1 % (0.0-1.5); BG OXYGEN SATURATION 97.7 % (92.0-98.5); BG OXYHEMOGLOBIN 95.4 % (94.0-97.0); BG PCO2 22.6 mmHg (35.0-45.0); BG PH 6.986 (7.350-7.450); BG PO2 141.6 mmHg (75.0-100.0); BG SAMPLE SITE RIGHT BRACHIAL; BG TOTAL HEMOGLOBIN 11.9 g/dL (12.0-18.0); BG VENT MODE VENT - AC
[2024-04-14 20:17] LABS: HEMATOCRIT 35.4 % (42.0-52.0); HEMOGLOBIN 10.8 g/dL (14.0-18.0); MEAN CORPUSCULAR HEMOGLOBIN 30.4 pg (28.0-32.0); MEAN CORPUSCULAR HGB CONC 30.6 g/dL (31.0-37.0); MEAN CORPUSCULAR VOLUME 99.4 fL (80.0-94.0); PLATELET 73 x1000/uL (130-400); RED BLOOD CELL COUNT 3.56 mill/uL (4.7-6.1); RED CELL DISTRIBUTION WIDTH 17.1 % (11.6-14.6); WHITE BLOOD COUNT 4.3 x1000/uL (4.5-11.0)
[2024-04-14 20:21] LABS: CHLORIDE 111 mEq/L (98-107); POTASSIUM 4.7 mEq/L (3.5-5.1); SODIUM 139 mEq/L (136-145)
[2024-04-14 20:22] LABS: CALCIUM 7.5 mg/dL (8.7-10.4)
[2024-04-14 20:27] LABS: CREATININE 1.4 mg/dL (0.6-1.3); GLUCOSE 87 mg/dL (70-105)
[2024-04-14 20:28] LABS: UREA NITROGEN BLOOD 18 mg/dL (9-23)
[2024-04-14 20:29] LABS: ALANINE AMINOTRANSFERASE 1075 IU/L (10-49); ALBUMIN 1.4 g/dL (3.2-4.8)
[2024-04-14 20:30] LABS: BILIRUBIN TOTAL 1.1 mg/dL (0.1-1.0); PROTEIN TOTAL 4.3 g/dL (6.0-8.3)
[2024-04-14] MEDS ORDERED: DEXTROSE 5% WATER 1,000 ML IV SCH (20:30)
[2024-04-14 20:36] LABS: TROPONIN I HIGH SENSITIVITY 179 ng/L (3.0-53)
[2024-04-14 20:37] LABS: CARBON DIOXIDE < 10 mEq/L (21-32)
[2024-04-14 20:50] LABS: ASPARTATE AMINOTRANSFERASE > 6000 IU/L (<34)
[2024-04-14] MEDS: SODIUM BICARBONATE 8.4% 50MEQ/50ML SYR IV NR (20:56)
[2024-04-14] MEDS: VASOPRESSIN 20 UNIT in SODIUM CHLORIDE 0.9% 99 ML IV PRN (21:46)
[2024-04-14] MEDS: SODIUM BICARBONATE 150 MEQ in DEXT 5%/0.45% NACL 1000ML 850 ML IV SCH (21:46)
[2024-04-14] MEDS ORDERED: SODIUM BICARBONATE 150 MEQ in SODIUM CHLORIDE 0.45% 850 ML IV SCH (22:00)
[2024-04-14 23:52] LABS: CREATINE KINASE 1232 IU/L (46-171)
[2024-04-14 23:57] LABS: TROPONIN I HIGH SENSITIVITY 295 ng/L (3.0-53)
[2024-04-15] VITALS (56 sets, daily range): BP systolic 47–121; BP diastolic 31–66; PULSE 0–100; RESP 20–38; TEMP 96–96.7
[2024-04-15] MEDS: NOREPINEPHRINE 32 MG in DEXT 5% WATER 218 ML IV PRN (00:35)
[2024-04-15] MEDS ORDERED: CEFEPIME 1GM IN DEXT 5% 50ML IV SCH (00:45)
[2024-04-15] MEDS: DEXTROSE 50% WATER 50ML SYRINGE IV ONE (01:20)
[2024-04-15] MEDS ORDERED: DEXTROSE 50% WATER 50ML SYRINGE IV PRN (01:30)
[2024-04-15] MEDS: BLOOD SUGAR DIAGNOSTIC STRIP TEST SCH (01:32)
[2024-04-15] MEDS: DEXT 10% WATER 1,000 ML IV SCH (01:33)
[2024-04-15] MEDS: VANCOMYCIN 1.25GM PMX (XELLIA) 250 ML IV NR (01:33)
[2024-04-15] MEDS: HYDROCORTISONE SOD SUCCINATE 100 MG/2 ML VIAL IV NR (01:45)
[2024-04-15 02:54] LABS: CHLORIDE 112 mEq/L (98-107); POTASSIUM 4.9 mEq/L (3.5-5.1); SODIUM 141 mEq/L (136-145)
[2024-04-15 02:55] LABS: CALCIUM 7.3 mg/dL (8.7-10.4)
[2024-04-15 03:00] LABS: CREATININE 1.4 mg/dL (0.6-1.3); GLUCOSE 141 mg/dL (70-105); UREA NITROGEN BLOOD 17 mg/dL (9-23)
[2024-04-15] MEDS: CEFEPIME 1GM/50ML 50 ML IV SCH (03:17)
[2024-04-15] MEDS: EPINEPHRINE 10 MG in SODIUM CHLORIDE 0.9% 240 ML IV PRN (03:18)
[2024-04-15 03:31] LABS: CARBON DIOXIDE < 10 mEq/L (21-32)
[2024-04-15] MEDS: SODIUM BICARBONATE 8.4% 50MEQ/50ML SYR IV NR (04:00)
[2024-04-15 06:16] LABS: HEMATOCRIT. 29.1 % (42.0-52.0); MEAN CORPUSCULAR HEMOGLOBIN 30.4 pg (28.0-32.0); MEAN CORPUSCULAR HGB CONC 30.9 g/dL (31.0-37.0); MEAN CORPUSCULAR VOLUME 98.6 fL (80.0-94.0); MEAN PLATELET VOLUME 6.8 fl (7.4-10.4); RED BLOOD CELL COUNT 2.95 mill/uL (4.7-6.1); RED CELL DISTRIBUTION WIDTH 17.6 % (11.6-14.6); WHITE BLOOD COUNT 4.1 x1000/uL (4.5-11.0)
[2024-04-15 06:32] LABS: DIFFERENTIAL COMMENT 1
[2024-04-15 08:11] LABS: CHLORIDE 110 mEq/L (98-107); POTASSIUM 4.8 mEq/L (3.5-5.1); SODIUM 146 mEq/L (136-145)
[2024-04-15 08:12] LABS: CALCIUM 6.8 mg/dL (8.7-10.4)
[2024-04-15 08:17] LABS: CREATININE 1.4 mg/dL (0.6-1.3); GLUCOSE 166 mg/dL (70-105); UREA NITROGEN BLOOD 17 mg/dL (9-23)
[2024-04-15 08:19] LABS: ALANINE AMINOTRANSFERASE 902 IU/L (10-49); BILIRUBIN DIRECT 0.9 mg/dL (<=3.0); BILIRUBIN TOTAL 1.1 mg/dL (0.1-1.0); CREATINE KINASE 1177 IU/L (46-171)
[2024-04-15 08:50] LABS: ALBUMIN < 1.0 g/dL (3.2-4.8)
[2024-04-15 08:54] LABS: CARBON DIOXIDE < 10 mEq/L (21-32); TROPONIN I HIGH SENSITIVITY 557 ng/L (3.0-53)
[2024-04-15] MEDS: PANTOPRAZOLE SODIUM 40 MG/VIAL IV SCH (09:16)
[2024-04-15] MEDS: PHENYLEPHRINE 100 MG in DEXT 5% WATER 240 ML IV PRN (09:16)
[2024-04-15 09:37] LABS: ASPARTATE AMINOTRANSFERASE 6385 IU/L (<34)
[2024-04-15 09:40] LABS: BG BASE EXCESS -27.1 mmol/L (-2.0-2.0); BG CARBOXYHEMOGLOBIN 0.3 % (0.5-1.5); BG DEOXYHEMOGLOBIN 10.1 % (0.0-5.0); BG FRACTION INSPIRED OXYGEN 50; BG HCO3 ACT 4.4 mmol/L (22.0-26.0); BG METHEMOGLOBIN 0.3 % (0.0-1.5); BG OXYGEN SATURATION 89.8 % (92.0-98.5); BG OXYHEMOGLOBIN 89.3 % (94.0-97.0); BG PCO2 23.3 mmHg (35.0-45.0); BG PH 6.889 (7.350-7.450); BG SAMPLE SITE RIGHT RADIAL; BG TOTAL HEMOGLOBIN 9.3 g/dL (12.0-18.0); BG VENT MODE VENT - AC
[2024-04-15] MEDS: DOPAMINE 400MG/250ML PREMIX 250 ML IV PRN (09:57)
[2024-04-15 16:09] LABS: ANISOCYTOSIS 1+; PLATELET 39 x1000/uL (130-400); PLATELET ESTIMATE MARKEDLY DECREASED
[2024-04-15] MEDS ORDERED: VANCOMYCIN 1GM/200ML PMX (BAXTER) IV SCH (23:00)
== END 2024-04-15 15:19 | DRG 208 ==
LOC: ER 15:02 → EDBEDREQ 17:33 → EDBEDREQTM 17:33 → CVICU 18:58
PROVIDERS: ADMIT Internal Medicine; ATTEND Internal Medicine
PROC: 5A1935Z Respiratory Ventilation, Less than 24 Consecutive Hours (ICD-10-PCS; principal; 2024-04-14)
DX: J96.01 Acute respiratory failure with hypoxia (principal); G93.41 Metabolic encephalopathy; K72.00 Acute and subacute hepatic failure without coma; J69.0 Pneumonitis due to inhalation of food and vomit; D62 Acute posthemorrhagic anemia; G93.1 Anoxic brain damage, not elsewhere classified; N17.9 Acute kidney failure, unspecified; I82.403 Acute embolism and thrombosis of unspecified deep veins of lower extremity, bilateral; J96.02 Acute respiratory failure with hypercapnia; D69.6 Thrombocytopenia, unspecified; I10 Essential (primary) hypertension; Z66 Do not resuscitate; D70.9 Neutropenia, unspecified; I48.91 Unspecified atrial fibrillation; I46.9 Cardiac arrest, cause unspecified; R74.8 Abnormal levels of other serum enzymes; Z85.46 Personal history of malignant neoplasm of prostate; I25.2 Old myocardial infarction; Z85.118 Personal history of other malignant neoplasm of bronchus and lung
CPT/HCPCS: 36415; 36600; 71045; 80048; 80053; 80061; 80076; 80320; 82375; 82550; 82805; 82947; 82962; 83036; 83605; 83735; 83880; 84100; 84145; 84439; 84443; 84484; 85025; 85027; 86850; 86900; 86920; 87070; 87077; 87186; 93005; 93306; 93970; 94002; 94003; 99291; C9113; J0692; J1265; J1720; J2543; J3370; J3490; J7030; J7050; J7060; G0480